=== PATIENT | female | born 2000 | race Caucasian/White ===

== ENCOUNTER 2023-12-02 12:48 | Emergency (ER) | payer MEDICAID, SELFPAY ==
[2023-12-02 12:58] VITALS: BP 106/68; PULSE 66; RESP 16; TEMP 36.5; O2SAT 100; BMI 29.5
--- NOTE | 2023-12-02 13:21 | ED.WOUNDLAC ---
HPI - Wound/Laceration General Time Seen by Provider: 13:21 Date Seen: 12/02/23 Chief Complaint: Laceration/Wound Stated Complaint: Head lac Time Seen by Provider: 12/02/23 13:20 Source: patient, RN notes reviewed and old records reviewed Mode of arrival: ambulatory Limitations: other (Developmental delay) History of Present Illness HPI narrative: 23-year-old female who presents today with head injury after falling in the bathtub today.No other injuries, no loss of consciousness usual behavior since Exam Narrative: Exam Narrative: General: Well-developed and well-nourished, no acute distress Head: the 1 cm partial-thickness laceration just behind the right ear Eyes: Pupils are equal reactive, extraocular motions intact, conjunctiva clear ENT: External nose and ears are normal, posterior pharynx without erythema or exudate Neck: No midline cervical tenderness, full spontaneous range of motion the neck, trachea midline, no adenopathy Heart: Regular rate and rhythm no murmurs or thrills Lungs: Clear to auscultation bilaterally without wheezes or crackles Abdomen: Soft, nontender, nondistended with active bowel sounds Musculoskeletal: No tenderness, deformity, or edema Neurologic: Awake, alert, and oriented x3, no gross focal neurologic deficits, cranial nerves intact as tested Psych: Mood and affect are appropriate Skin: No rashes Const: Vital Signs, click to edit/add: Vital Signs - 24 hr 12/02/23 12:58 Temperature 97.7 F Pulse Rate [Right Pulse Oximeter] 66 Respiratory Rate 16 Blood Pressure [Ri ght Upper Arm] 106/68 Pulse Oximetry 100 Oxygen Delivery Me thod Room Air Course Course ED Course: Patient seen and examined, prior records are reviewed. patient with a laceration behind the right ear after fall this morning, no loss consciousness And usual behavior since. On exam, 1 cm partial-thickness laceration behind the right ear. This was cleaned with normal saline and closed with Dermabond. Patient tolerated this well. Consider CT scan the head but minor injury with no change in behavior, no indication for head CT. Vital Signs Vital signs: Initial Vital Signs Temperature 97.7 F 12/02/23 12:58 Temperature Source Temporal Artery Scan 12/02/23 12:58 Pulse Rate 66 12/02/23 12:58 Pulse Rhythm Regular 12/02/23 12:58 Pulse Strength 3+ Normal 12/02/23 12:58 Respiratory Rate 16 12/02/23 12:58 Blood Pressure 106/68 12/02/23 12:58 Blood Pressure Mean 80 12/02/23 12:58 Blood Pressure Position Sitting 12/02/23 12:58 Pulse Oximetry 100 12/02/23 12:58 Oxygen Delivery Method Room Air 12/02/23 12:58 Vital Signs Temperature 97.7 F 12/02/23 12:58 Pulse Rate 66 12/02/23 12:58 Respiratory Rate 16 12/02/23 12:58 Blood Pressure 106/68 12/02/23 12:58 Pulse Oximetry 100 12/02/23 12:58 Oxygen Delivery Method Room Air 12/02/23 12:58 Temperature 97.7 F 12/02/23 12:58 Pulse Rate 66 12/02/23 12:58 Respiratory Rate 16 12/02/23 12:58 Blood Pressure 106/68 12/02/23 12:58 Pulse Oximetry 100 12/02/23 12:58 Oxygen Delivery Method Room Air 12/02/23 12:58 Discharge Plan Discharge Clinical Impression: Laceration of scalp Patient Disposition: Home w/ Parent or Adult Condition: Stable Instructions: Skin Adhesive Care (ED) Activity Level: No Restrictions Discharge Diet: Regular Follow Up/Referrals: Brooklyn Hayes MD [Primary Care Provider] - Stand Alone Forms: MyHealth Info Instructions
== END 2023-12-02 14:18 | disposition home or self-care (01) ==
LOC: ED 14:20
PROVIDERS: Emergency Provider Family Medicine; PCP Pediatrics
DX: S01.01XA Laceration without foreign body of scalp, initial encounter (principal); W18.2XXA Fall in (into) shower or empty bathtub, initial encounter
CPT/HCPCS: 12001; 99282; 99284

== ENCOUNTER 2025-06-17 11:05 | Outpatient (CLI) | payer MEDICAID, SELFPAY ==
[2025-06-17 11:31] LABS: Hematocrit* 38.4 % (33.0-51.0); Hemoglobin* 12.6 gm/dL (12.0-16.0); Immature Granulocytes Abs Auto 0.00 K/uL (0.00-0.30); Immature Granulocytes Pct Auto 0.0 %; Lymphocytes Absolute Auto 2.61 K/uL (0.90-2.90); Mean Corpuscular HGB Conc 33 gm/dL (32-36); Mean Corpuscular Hemoglobin 26 pg (26-34); Mean Corpuscular Volume 79 fL (80-100); RDW Coefficient of Variation % 12.3 % (11.5-15.5); Red Blood Count* 4.87 m/uL (4.00-5.20); White Blood Count* 6.42 K/uL (4.50-11.00)
[2025-06-17 11:33] LABS: Slide Review Reflex No
[2025-06-17 11:50] LABS: Chloride* 103 mmol/L (96-114)
[2025-06-17 11:51] LABS: Albumin* 4.2 g/dL (3.3-5.0); Potassium* 4.2 mmol/L (3.6-5.1); Sodium* 137 mmol/L (135-149)
[2025-06-17 11:53] LABS: Blood Urea Nitrogen* 10 mg/dL (5-24); Creatinine* 0.6 mg/dL (0.5-1.5); Estimated Glomerular Filt Rate 126 ml/min
[2025-06-17 11:54] LABS: Alanine Aminotransferase* 20 U/L (4-35); Alkaline Phosphatase* 85 U/L (40-150); Anion Gap 7 mEq/L (7-15); Aspartate Amino Transferase* 27 U/L (12-35); Bilirubin Total* 0.2 mg/dL (0.1-1.5); Calcium* 8.8 mg/dL (8.4-10.6); Carbon Dioxide* 27 mmol/L (20-32); Glucose* 96 mg/dL (60-115); Total Protein* 7.4 g/dL (6.0-8.3)
== END 2025-06-17 11:06 | disposition home or self-care (01) ==
PROVIDERS: PCP Pediatrics; Visit Provider Psychiatry & Neurology Neurology
DX: G40.219 Localization-related (focal) (partial) symptomatic epilepsy and epileptic syndromes with complex partial seizures, intractable, without status epilepticus (principal); Z79.899 Other long term (current) drug therapy
CPT/HCPCS: 36415; 80053; 80177; 80235; 85025

== ENCOUNTER 2025-08-11 13:05 | Outpatient (CLI) | payer MEDICAID, SELFPAY ==
[2025-08-11 13:45] LABS: Hemoglobin* 13.1 gm/dL (12.0-16.0)
[2025-08-11 14:11] LABS: Iron* 65 ug/dL (37-170)
[2025-08-11 14:21] LABS: Percent Iron Saturation 25 % (20-50); Total Iron Binding Capacity 263 ug/dL (265-497)
== END 2025-08-11 13:06 | disposition home or self-care (01) ==
PROVIDERS: PCP Pediatrics; Visit Provider Family Medicine
DX: R71.8 Other abnormality of red blood cells (principal)
CPT/HCPCS: 36415; 82728; 83540; 83550; 85018